=== PATIENT | female | born 1935 | race Caucasian/White ===

== ENCOUNTER 2018-06-05 10:22 | Emergency (ER) | payer OTHER ==
[~2018-06-05] VITALS: Ht 152.4 cm; Wt 58.5 kg
[2018-06-05 10:39] VITALS: BP_SYST 133
[2018-06-05] MEDS: ASPIRIN 81 MG TAB.CHEW PO ONE (11:06)
[2018-06-05 11:22] LABS: BASOPHILS % (AUTO) 0.3 % (0.0-2.0); EOSINOPHILS % (AUTO) 0.1 % (0.0-4.0); HEMOGLOBIN 11.9 g/dL (12.0-16.0); LYMPHOCYTES # (AUTO) 1.3 K/uL (1.0-5.5); LYMPHOCYTES % (AUTO) 9.3 % (20.5-51.5); MEAN CORPUSCULAR HEMOGLOBIN 28 pg (27-31); MEAN CORPUSCULAR HGB CONC 34 % (32-36); MEAN CORPUSCULAR VOLUME 83 fL (79.0-98.0); MONOCYTES # (AUTO) 0.7 K/uL (0.0-1.0); MONOCYTES % (AUTO) 5.5 % (1.7-9.3); NEUTROPHILS # (AUTO) 11.5 K/uL (1.8-7.7); NEUTROPHILS % (AUTO) 84.8 % (40.0-70.0); PLATELET COUNT (AUTO) 325 K/uL (130-430); RED BLOOD CELL COUNT(AUTO) 4.21 MIL/uL (4.2-6.2); WHITE BLOOD COUNT (AUTO) 13.5 K/uL (4.8-10.8)
[2018-06-05 11:25] VITALS: BP_SYST 126
[2018-06-05 11:28] LABS: ANION GAP 15 (5-15); CALCIUM 9.1 mg/dL (8.4-11.0); CHLORIDE 100 mmol/L (98-107); CREATININE 1.77 mg/dL (0.55-1.30); GLUCOSE 215 mg/dL (70-99); POTASSIUM 3.9 mmol/L (3.5-5.1); SODIUM SERUM 137 mmol/L (136-145); UREA NITROGEN, BLOOD 32 mg/dL (8-21)
[2018-06-05 11:32] LABS: INR 1.2 (0.8-1.2); PROTHROMBIN TIME 12.4 SECS (9.5-12.5)
[2018-06-05 11:33] LABS: ALANINE AMINOTRANSFERASE 17 U/L (12-78); ALBUMIN 3.4 g/dL (3.4-4.8); ASPARTATE AMINOTRANSFERASE 13 U/L (10-37); TOTAL BILIRUBIN 0.6 mg/dL (0.0-1.0)
== END 2018-06-05 11:25 | disposition short-term general hospital (02) ==
LOC: SED 10:22
DX: R07.89 Other chest pain (principal); Z88.8 Allergy status to other drugs, medicaments and biological substances; Z90.49 Acquired absence of other specified parts of digestive tract
CPT/HCPCS: 36415; 71045; 80053; 82550-TC; 84484; 85025; 85610-TC; 85730-TC; 93005; 99291

== ENCOUNTER 2019-11-26 17:28 | Inpatient (IN) | payer OTHER ==
[~2019-11-26] VITALS: Ht 157.5 cm; Wt 60.4 kg
[2019-11-26 17:35] VITALS: BP_SYST 150
[2019-11-26] MEDS ORDERED: LEVOFLOXACIN 500 MG/D5W 100 ML IV ONE (17:45)
[2019-11-26] MEDS ORDERED: ALBUTEROL SULFATE 0.083% 2.5 MG/3 ML VIAL.NEB INH ONE (17:45)
[2019-11-26 18:12] LABS: EOSINOPHILS % (AUTO) 0.1 % (0.0-4.0); HEMATOCRIT 26.5 % (36-48); HEMOGLOBIN 8.2 g/dL (12.0-16.0); LYMPHOCYTES # (AUTO) 0.8 K/uL (1.0-5.5); LYMPHOCYTES % (AUTO) 5.1 % (20.5-51.5); MEAN CORPUSCULAR HEMOGLOBIN 25 pg (27-31); MEAN CORPUSCULAR HGB CONC 31 % (32-36); MEAN CORPUSCULAR VOLUME 81 fL (79.0-98.0); MONOCYTES # (AUTO) 0.6 K/uL (0.0-1.0); MONOCYTES % (AUTO) 3.6 % (1.7-9.3); NEUTROPHILS # (AUTO) 14.5 K/uL (1.8-7.7); NEUTROPHILS % (AUTO) 91.2 % (40.0-70.0); PLATELET COUNT (AUTO) 297 K/uL (130-430); RED BLOOD CELL COUNT(AUTO) 3.27 MIL/uL (4.2-6.2); RED CELL DISTRIBUTION WIDTH 16.7 % (9.0-15.0); WHITE BLOOD COUNT (AUTO) 15.9 K/uL (4.8-10.8)
[2019-11-26 18:24] LABS: ANION GAP 13 (5-15); CALCIUM 8.2 mg/dL (8.4-11.0); CHLORIDE 111 mmol/L (98-107); CREATININE 1.78 mg/dL (0.55-1.30); GLUCOSE 239 mg/dL (70-99); POTASSIUM 4.2 mmol/L (3.5-5.1); SODIUM SERUM 141 mmol/L (136-145); UREA NITROGEN, BLOOD 42 mg/dL (8-21)
[2019-11-26 18:29] LABS: INR 1.3 (0.8-1.2); PROTHROMBIN TIME 13.2 SECS (9.5-12.5)
[2019-11-26 18:33] LABS: ALANINE AMINOTRANSFERASE 97 U/L (12-78); ALBUMIN 2.1 g/dL (3.4-4.8); ASPARTATE AMINOTRANSFERASE 45 U/L (10-37); TOTAL BILIRUBIN 0.4 mg/dL (0.0-1.0)
[2019-11-26] MEDS ORDERED: FUROSEMIDE 40 MG/4 ML VIAL IVP ONE (19:00)
[2019-11-26 21:50] VITALS: BP_SYST 142
[2019-11-27 01:36] VITALS: BP_SYST 139
[2019-11-27] MEDS ORDERED: COMMUNICATION ORDER XX ONE (02:00)
[2019-11-27] MEDS: PIPERACILLIN/TAZO 3.375/DEX-IS 50 ML IV SCH ×4 (02:34→18:21)
[2019-11-27] MEDS ORDERED: PIPERACILLIN/TAZOBACTAM 3.375 GM/VIAL (ZOSYN) IV ONE (02:40)
[2019-11-27] MEDS ORDERED: AZITHROMYCIN 500 MG/VIAL (ZITHROMAX) IV ONE (02:40)
[2019-11-27] MEDS: AZITHROMYCIN 500 MG in NS 250 ML IV SCH (03:27)
[2019-11-27 05:41] VITALS: BP_SYST 139
[2019-11-27] MEDS: NORMAL SALINE 5 ML DISP.SYRIN IVF SCH (06:00)
[2019-11-27 06:49] LABS: ALANINE AMINOTRANSFERASE 78 U/L (12-78); ALBUMIN 1.7 g/dL (3.4-4.8); ANION GAP 13 (5-15); ASPARTATE AMINOTRANSFERASE 40 U/L (10-37); CALCIUM 7.6 mg/dL (8.4-11.0); CHLORIDE 108 mmol/L (98-107); CREATININE 1.75 mg/dL (0.55-1.30); GLUCOSE 241 mg/dL (70-99); POTASSIUM 3.9 mmol/L (3.5-5.1); SODIUM SERUM 139 mmol/L (136-145); TOTAL BILIRUBIN 0.4 mg/dL (0.0-1.0); UREA NITROGEN, BLOOD 40 mg/dL (8-21)
[2019-11-27 07:20] LABS: BASOPHILS % (AUTO) 0.2 % (0.0-2.0); EOSINOPHILS # (AUTO) 0.2 K/uL (0.0-0.4); EOSINOPHILS % (AUTO) 1.5 % (0.0-4.0); HEMATOCRIT 29.1 % (36-48); HEMOGLOBIN 9.1 g/dL (12.0-16.0); LYMPHOCYTES # (AUTO) 1.1 K/uL (1.0-5.5); LYMPHOCYTES % (AUTO) 6.5 % (20.5-51.5); MEAN CORPUSCULAR HEMOGLOBIN 25 pg (27-31); MEAN CORPUSCULAR HGB CONC 31 % (32-36); MEAN CORPUSCULAR VOLUME 81 fL (79.0-98.0); MONOCYTES # (AUTO) 0.8 K/uL (0.0-1.0); MONOCYTES % (AUTO) 4.9 % (1.7-9.3); NEUTROPHILS # (AUTO) 14.5 K/uL (1.8-7.7); NEUTROPHILS % (AUTO) 86.9 % (40.0-70.0); PLATELET COUNT (AUTO) 259 K/uL (130-430); RED BLOOD CELL COUNT(AUTO) 3.61 MIL/uL (4.2-6.2); RED CELL DISTRIBUTION WIDTH 16.5 % (9.0-15.0); WHITE BLOOD COUNT (AUTO) 16.7 K/uL (4.8-10.8)
[2019-11-27 07:25] LABS: CHOLESTEROL 82 mg/dL (<200); HDL CHOLESTEROL 29 mg/dL (>55); LDL CHOLESTEROL 41 mg/dL (<100); TRIGLYCERIDES 78 mg/dL (30-150)
[2019-11-27 08:00] VITALS: BP_SYST 130
[2019-11-27] MEDS: FUROSEMIDE 40 MG/4 ML VIAL IVP SCH (08:31)
[2019-11-27] MEDS ORDERED: FUROSEMIDE 40 MG/4 ML VIAL IVP SCH (09:00)
[2019-11-27 12:00] VITALS: BP_SYST 131
[2019-11-27] MEDS: ALBUTEROL SULFATE 0.083% 2.5 MG/3 ML VIAL.NEB INH PRN (13:40)
[2019-11-27 16:00] VITALS: BP_SYST 138
[2019-11-27 20:00] VITALS: BP_SYST 134
[2019-11-28] VITALS (7 sets, daily range): BP systolic 126–144
[2019-11-28] MEDS: AZITHROMYCIN 500 MG in NS 250 ML IV SCH (01:02)
[2019-11-28] MEDS: ALBUTEROL SULFATE 0.083% 2.5 MG/3 ML VIAL.NEB INH PRN ×2 (01:10→10:38)
[2019-11-28] MEDS: PIPERACILLIN/TAZO 3.375/DEX-IS 50 ML IV SCH ×4 (06:00→18:11)
[2019-11-28] MEDS ORDERED: DEXTROSE 50% JECT 50 ML DISP.SYRIN IVP PRN (09:15)
[2019-11-28] MEDS: FUROSEMIDE 40 MG/4 ML VIAL IVP SCH (09:38)
[2019-11-28 10:26] LABS: ANION GAP 8 (5-15); CALCIUM 7.4 mg/dL (8.4-11.0); CHLORIDE 102 mmol/L (98-107); CREATININE 2.11 mg/dL (0.55-1.30); GLUCOSE 376 mg/dL (70-99); POTASSIUM 3.3 mmol/L (3.5-5.1); SODIUM SERUM 136 mmol/L (136-145); UREA NITROGEN, BLOOD 38 mg/dL (8-21)
[2019-11-28 10:32] LABS: ALANINE AMINOTRANSFERASE 63 U/L (12-78); ASPARTATE AMINOTRANSFERASE 26 U/L (10-37); TOTAL BILIRUBIN 0.5 mg/dL (0.0-1.0)
[2019-11-28 12:32] LABS: BASOPHILS % (AUTO) 0.3 % (0.0-2.0); EOSINOPHILS # (AUTO) 0.2 K/uL (0.0-0.4); EOSINOPHILS % (AUTO) 1.5 % (0.0-4.0); HEMATOCRIT 30.5 % (36-48); HEMOGLOBIN 9.3 g/dL (12.0-16.0); LYMPHOCYTES # (AUTO) 0.8 K/uL (1.0-5.5); LYMPHOCYTES % (AUTO) 5.6 % (20.5-51.5); MEAN CORPUSCULAR HEMOGLOBIN 25 pg (27-31); MEAN CORPUSCULAR HGB CONC 31 % (32-36); MEAN CORPUSCULAR VOLUME 82 fL (79.0-98.0); MONOCYTES # (AUTO) 0.5 K/uL (0.0-1.0); MONOCYTES % (AUTO) 3.7 % (1.7-9.3); NEUTROPHILS # (AUTO) 13.1 K/uL (1.8-7.7); NEUTROPHILS % (AUTO) 88.9 % (40.0-70.0); PLATELET COUNT (AUTO) 246 K/uL (130-430); RED BLOOD CELL COUNT(AUTO) 3.72 MIL/uL (4.2-6.2); RED CELL DISTRIBUTION WIDTH 17.1 % (9.0-15.0); WHITE BLOOD COUNT (AUTO) 14.7 K/uL (4.8-10.8)
[2019-11-28] MEDS: INSULIN REGULAR, HUMAN 100 UNITS/ML, 10 ML VIAL (humuLIN R) SUBCUT PRN ×2 (12:43→17:43)
[2019-11-28] MEDS: NORMAL SALINE 5 ML DISP.SYRIN IVF SCH ×3 (18:11→23:02)
[2019-11-29] MEDS: PIPERACILLIN/TAZO 3.375/DEX-IS 50 ML IV SCH ×4 (00:01→18:12)
[2019-11-29] MEDS: INSULIN REGULAR, HUMAN 100 UNITS/ML, 10 ML VIAL (humuLIN R) SUBCUT PRN ×4 (00:02→17:44)
[2019-11-29 00:16] VITALS: BP_SYST 131
[2019-11-29] MEDS: ALBUTEROL SULFATE 0.083% 2.5 MG/3 ML VIAL.NEB INH PRN (00:40)
[2019-11-29] MEDS: AZITHROMYCIN 500 MG in NS 250 ML IV SCH (01:14)
[2019-11-29] MEDS: NORMAL SALINE 5 ML DISP.SYRIN IVF SCH ×3 (06:16→22:00)
[2019-11-29 06:45] LABS: BASOPHILS % (AUTO) 0.2 % (0.0-2.0); EOSINOPHILS # (AUTO) 0.4 K/uL (0.0-0.4); EOSINOPHILS % (AUTO) 2.2 % (0.0-4.0); HEMATOCRIT 25.4 % (36-48); HEMOGLOBIN 8.1 g/dL (12.0-16.0); LYMPHOCYTES % (AUTO) 5.1 % (20.5-51.5); MEAN CORPUSCULAR HEMOGLOBIN 25 pg (27-31); MEAN CORPUSCULAR HGB CONC 32 % (32-36); MEAN CORPUSCULAR VOLUME 79 fL (79.0-98.0); MONOCYTES # (AUTO) 0.7 K/uL (0.0-1.0); MONOCYTES % (AUTO) 3.8 % (1.7-9.3); NEUTROPHILS # (AUTO) 16.7 K/uL (1.8-7.7); PLATELET COUNT (AUTO) 252 K/uL (130-430); RED BLOOD CELL COUNT(AUTO) 3.22 MIL/uL (4.2-6.2); RED CELL DISTRIBUTION WIDTH 16.3 % (9.0-15.0); WHITE BLOOD COUNT (AUTO) 18.8 K/uL (4.8-10.8)
[2019-11-29 07:14] LABS: ALANINE AMINOTRANSFERASE 51 U/L (12-78); ALBUMIN 1.9 g/dL (3.4-4.8); ANION GAP 10 (5-15); ASPARTATE AMINOTRANSFERASE 21 U/L (10-37); CALCIUM 7.2 mg/dL (8.4-11.0); CHLORIDE 101 mmol/L (98-107); CREATININE 1.92 mg/dL (0.55-1.30); GLUCOSE 130 mg/dL (70-99); SODIUM SERUM 142 mmol/L (136-145); TOTAL BILIRUBIN 0.5 mg/dL (0.0-1.0); UREA NITROGEN, BLOOD 35 mg/dL (8-21)
[2019-11-29 08:00] VITALS: BP_SYST 138
[2019-11-29 08:12] LABS: POTASSIUM 2.9 mmol/L (3.5-5.1)
[2019-11-29] MEDS: FUROSEMIDE 40 MG/4 ML VIAL IVP SCH (08:56)
[2019-11-29] MEDS: BALSAM PERU/CASTOR OIL 60 GM OINT...G. TP SCH (08:57)
[2019-11-29 09:32] LABS: NEUTROPHILS % (AUTO) 88.7 % (40.0-70.0)
[2019-11-29] MEDS ORDERED: IPRATROPIUM/ALBUTEROL SULFATE 3 ML AMPUL.NEB (DUONEB) INH SCH (10:00)
[2019-11-29 12:08] VITALS: BP_SYST 157
[2019-11-29] MEDS: IPRATROPIUM/ALBUTEROL SULFATE 3 ML AMPUL.NEB (DUONEB) INH SCH ×3 (15:00→23:00)
[2019-11-29 16:15] VITALS: BP_SYST 162
[2019-11-29] MEDS ORDERED: POTASSIUM CHLORIDE 40 MEQ in NS 250 ML IV ONE (18:00)
[2019-11-29 20:00] VITALS: BP_SYST 154
[2019-11-30 00:56] VITALS: BP_SYST 142
[2019-11-30] MEDS: AZITHROMYCIN 500 MG in NS 250 ML IV SCH (01:38)
[2019-11-30] MEDS: IPRATROPIUM/ALBUTEROL SULFATE 3 ML AMPUL.NEB (DUONEB) INH SCH ×6 (03:00→23:29)
[2019-11-30] MEDS: NORMAL SALINE 5 ML DISP.SYRIN IVF SCH ×4 (05:20→23:08)
[2019-11-30] MEDS: PIPERACILLIN/TAZO 3.375/DEX-IS 50 ML IV SCH ×4 (05:20→17:51)
[2019-11-30] MEDS: INSULIN REGULAR, HUMAN 100 UNITS/ML, 10 ML VIAL (humuLIN R) SUBCUT PRN ×3 (05:28→17:23)
[2019-11-30 06:46] LABS: ANION GAP 11 (5-15); CALCIUM 7.2 mg/dL (8.4-11.0); CHLORIDE 92 mmol/L (98-107); CREATININE 2.03 mg/dL (0.55-1.30); GLUCOSE 327 mg/dL (70-99); PHOSPHORUS 4.9 mg/dL (2.7-4.5); POTASSIUM 3.6 mmol/L (3.5-5.1); SODIUM SERUM 133 mmol/L (136-145); UREA NITROGEN, BLOOD 36 mg/dL (8-21)
[2019-11-30 06:53] LABS: BASOPHILS % (AUTO) 0.1 % (0.0-2.0); EOSINOPHILS % (AUTO) 0.1 % (0.0-4.0); HEMATOCRIT 27.6 % (36-48); HEMOGLOBIN 8.6 g/dL (12.0-16.0); LYMPHOCYTES # (AUTO) 0.4 K/uL (1.0-5.5); LYMPHOCYTES % (AUTO) 2.2 % (20.5-51.5); MEAN CORPUSCULAR HEMOGLOBIN 25 pg (27-31); MEAN CORPUSCULAR HGB CONC 31 % (32-36); MEAN CORPUSCULAR VOLUME 79 fL (79.0-98.0); MONOCYTES # (AUTO) 0.4 K/uL (0.0-1.0); MONOCYTES % (AUTO) 2.7 % (1.7-9.3); NEUTROPHILS % (AUTO) 94.9 % (40.0-70.0); PLATELET COUNT (AUTO) 261 K/uL (130-430); RED BLOOD CELL COUNT(AUTO) 3.47 MIL/uL (4.2-6.2); RED CELL DISTRIBUTION WIDTH 16.7 % (9.0-15.0); WHITE BLOOD COUNT (AUTO) 16.8 K/uL (4.8-10.8)
[2019-11-30 08:00] VITALS: BP_SYST 143
[2019-11-30] MEDS: BALSAM PERU/CASTOR OIL 60 GM OINT...G. TP SCH (09:00)
[2019-11-30 09:09] LABS: C-REACTIVE PROTEIN QUANT 15.8 mg/dL (0-0.5)
[2019-11-30] MEDS: FUROSEMIDE 40 MG/4 ML VIAL IVP SCH (09:47)
[2019-11-30 10:52] LABS: ERYTHROCYTE SEDIMENTATION RATE 48 MM/HR (0-20)
[2019-11-30 12:00] VITALS: BP_SYST 135
[2019-11-30 12:40] VITALS: BP_SYST 143
[2019-11-30 16:43] VITALS: BP_SYST 136
[2019-11-30 20:00] VITALS: BP_SYST 128
[2019-12-01] VITALS (21 sets, daily range): BP systolic 99–147
[2019-12-01] MEDS: AZITHROMYCIN 500 MG in NS 250 ML IV SCH ×2
[2019-12-01] MEDS: PIPERACILLIN/TAZO 3.375/DEX-IS 50 ML IV SCH ×4 (00:01→18:05)
[2019-12-01] MEDS: IPRATROPIUM/ALBUTEROL SULFATE 3 ML AMPUL.NEB (DUONEB) INH SCH ×6 (03:01→23:15)
[2019-12-01] MEDS: NORMAL SALINE 5 ML DISP.SYRIN IVF SCH ×3 (05:08→22:10)
[2019-12-01] MEDS: INSULIN REGULAR, HUMAN 100 UNITS/ML, 10 ML VIAL (humuLIN R) SUBCUT PRN ×2 (06:02→13:13)
[2019-12-01 07:16] LABS: BASOPHILS % (AUTO) 0.2 % (0.0-2.0); EOSINOPHILS % (AUTO) 0.1 % (0.0-4.0); HEMATOCRIT 28.2 % (36-48); HEMOGLOBIN 8.6 g/dL (12.0-16.0); LYMPHOCYTES # (AUTO) 0.2 K/uL (1.0-5.5); LYMPHOCYTES % (AUTO) 1.6 % (20.5-51.5); MEAN CORPUSCULAR HEMOGLOBIN 25 pg (27-31); MEAN CORPUSCULAR HGB CONC 31 % (32-36); MEAN CORPUSCULAR VOLUME 81 fL (79.0-98.0); MONOCYTES # (AUTO) 0.4 K/uL (0.0-1.0); MONOCYTES % (AUTO) 2.7 % (1.7-9.3); NEUTROPHILS # (AUTO) 13.9 K/uL (1.8-7.7); NEUTROPHILS % (AUTO) 95.4 % (40.0-70.0); PLATELET COUNT (AUTO) 223 K/uL (130-430); RED BLOOD CELL COUNT(AUTO) 3.46 MIL/uL (4.2-6.2); RED CELL DISTRIBUTION WIDTH 16.6 % (9.0-15.0); WHITE BLOOD COUNT (AUTO) 14.6 K/uL (4.8-10.8)
[2019-12-01 07:27] LABS: ANION GAP 10 (5-15); CALCIUM 7.3 mg/dL (8.4-11.0); CHLORIDE 92 mmol/L (98-107); GLUCOSE 289 mg/dL (70-99); PHOSPHORUS 7.4 mg/dL (2.7-4.5); POTASSIUM 3.7 mmol/L (3.5-5.1); SODIUM SERUM 137 mmol/L (136-145); UREA NITROGEN, BLOOD 46 mg/dL (8-21)
[2019-12-01] MEDS: FUROSEMIDE 40 MG/4 ML VIAL IVP SCH (08:40)
[2019-12-01] MEDS: BALSAM PERU/CASTOR OIL 60 GM OINT...G. TP SCH (08:42)
[2019-12-01 11:12] LABS: ERYTHROCYTE SEDIMENTATION RATE 59 MM/HR (0-20)
[2019-12-01] MEDS: FAMOTIDINE PF 20 MG/2 ML VIAL IVP SCH (21:39)
[2019-12-02] VITALS (31 sets, daily range): BP systolic 94–130
[2019-12-02] MEDS: PIPERACILLIN/TAZO 3.375/DEX-IS 50 ML IV SCH ×4 (00:43→17:13)
[2019-12-02] MEDS: INSULIN REGULAR, HUMAN 100 UNITS/ML, 10 ML VIAL (humuLIN R) SUBCUT PRN ×4 (00:50→17:14)
[2019-12-02 02:32] LABS: INR 1.4 (0.8-1.2); PROTHROMBIN TIME 13.8 SECS (9.5-12.5)
[2019-12-02] MEDS: IPRATROPIUM/ALBUTEROL SULFATE 3 ML AMPUL.NEB (DUONEB) INH SCH ×5 (03:45→23:27)
[2019-12-02] MEDS: NORMAL SALINE 5 ML DISP.SYRIN IVF SCH ×3 (06:22→21:05)
[2019-12-02] MEDS ORDERED: MIDAZOLAM HCL 5 MG/5 ML VIAL ONE (06:58)
[2019-12-02] MEDS ORDERED: LIDOCAINE 2% JELLY UROJECT 10 ML MM ONE (06:59)
[2019-12-02] MEDS ORDERED: fentaNYL CITRATE/PF 100 MCG/2 ML AMP ONE (06:59)
[2019-12-02] MEDS ORDERED: LIDOCAINE 1%, 20 ML MDV 0 ML ONE (07:00)
[2019-12-02] MEDS ORDERED: BENZOCAINE 20% 0.5mL UD SPRAY MM ONE (07:22)
[2019-12-02] MEDS ORDERED: NS 500 ML IV ONE ×2 (07:44→15:15)
[2019-12-02 07:46] LABS: BILIRUBIN,URINE NEGATIVE (NEGATIVE); BLOOD, URINE 1+ (NEGATIVE); CLARITY/URINE CLEAR (CLEAR); COLOR,URINE YELLOW (YELLOW); GLUCOSE,URINE NEGATIVE (NEGATIVE); KETONES,URINE NEGATIVE (NEGATIVE); LEUKOCYTE ESTERASE ,URINE NEGATIVE (NEGATIVE); NITRITE, URINE NEGATIVE (NEGATIVE); PROTEIN URINE TRACE (NEGATIVE); UROBILINOGEN,URINE 0.2 (0.2-1.0)
[2019-12-02] MEDS ORDERED: AMIODARONE HCL 900 MG in D5W 482 ML IV SCH (08:00)
[2019-12-02] MEDS ORDERED: NACL 0.9% 500 ML IV ONE ×2 (08:15)
[2019-12-02] MEDS ORDERED: AMIODARONE HCL 150 MG in D5W 100 ML IV ONE (08:15)
[2019-12-02] MEDS: FAMOTIDINE PF 20 MG/2 ML VIAL IVP SCH ×2 (08:26→20:41)
[2019-12-02] MEDS: BALSAM PERU/CASTOR OIL 60 GM OINT...G. TP SCH (08:26)
[2019-12-02] MEDS: NACL 0.9% 1,000 ML IV SCH ×2 (08:29→17:12)
[2019-12-02] MEDS ORDERED: COMMUNICATION ORDER XX ONE (09:00)
[2019-12-02 12:16] LABS: BACTERIA,URINE RARE /HPF (None Seen); WBC,URINE 0-3 /HPF (0-3)
[2019-12-02] MEDS ORDERED: fentaNYL CITRATE/PF 100 MCG/2 ML AMP IVP PRN (15:15)
[2019-12-03] VITALS (37 sets, daily range): BP systolic 84–138
[2019-12-03] MEDS: PIPERACILLIN/TAZO 3.375/DEX-IS 50 ML IV SCH ×4 (01:11→18:44)
[2019-12-03] MEDS: IPRATROPIUM/ALBUTEROL SULFATE 3 ML AMPUL.NEB (DUONEB) INH SCH ×6 (03:35→23:37)
[2019-12-03] MEDS: NACL 0.9% 1,000 ML IV SCH ×3 (03:45→23:45)
[2019-12-03] MEDS: NORMAL SALINE 5 ML DISP.SYRIN IVF SCH ×3 (05:49→20:59)
[2019-12-03] MEDS ORDERED: MIDAZOLAM HCL 5 MG/5 ML VIAL ONE (07:39)
[2019-12-03] MEDS ORDERED: fentaNYL CITRATE/PF 100 MCG/2 ML AMP ONE (07:40)
[2019-12-03] MEDS ORDERED: LIDOCAINE 2% JELLY UROJECT 10 ML MM ONE (07:40)
[2019-12-03] MEDS ORDERED: LIDOCAINE 1%, 20 ML MDV 0 ML ONE (07:43)
[2019-12-03 07:51] LABS: BASOPHILS # (AUTO) 0.1 K/uL (0.0-0.2); BASOPHILS % (AUTO) 0.6 % (0.0-2.0); EOSINOPHILS # (AUTO) 0.4 K/uL (0.0-0.4); LYMPHOCYTES # (AUTO) 0.4 K/uL (1.0-5.5); LYMPHOCYTES % (AUTO) 3.6 % (20.5-51.5); MEAN CORPUSCULAR HEMOGLOBIN 24 pg (27-31); MEAN CORPUSCULAR HGB CONC 31 % (32-36); MEAN CORPUSCULAR VOLUME 78 fL (79.0-98.0); MONOCYTES # (AUTO) 0.3 K/uL (0.0-1.0); MONOCYTES % (AUTO) 2.4 % (1.7-9.3); NEUTROPHILS # (AUTO) 11.1 K/uL (1.8-7.7); NEUTROPHILS % (AUTO) 90.4 % (40.0-70.0); PLATELET COUNT (AUTO) 164 K/uL (130-430); RED BLOOD CELL COUNT(AUTO) 2.69 MIL/uL (4.2-6.2); RED CELL DISTRIBUTION WIDTH 17.1 % (9.0-15.0); WHITE BLOOD COUNT (AUTO) 12.2 K/uL (4.8-10.8)
[2019-12-03] MEDS ORDERED: FLUMAZENIL 0.1 MG/ML IVP ONE (07:52)
[2019-12-03] MEDS ORDERED: NALOXONE HCL 0.4 MG/ML AMP (NARCAN) ONE (07:52)
[2019-12-03 07:59] LABS: ALANINE AMINOTRANSFERASE 21 U/L (12-78); ALBUMIN 1.4 g/dL (3.4-4.8); ANION GAP 16 (5-15); ASPARTATE AMINOTRANSFERASE 27 U/L (10-37); CHLORIDE 98 mmol/L (98-107); CREATININE 3.71 mg/dL (0.55-1.30); GLUCOSE 288 mg/dL (70-99); SODIUM SERUM 141 mmol/L (136-145); TOTAL BILIRUBIN 0.4 mg/dL (0.0-1.0); UREA NITROGEN, BLOOD 63 mg/dL (8-21)
[2019-12-03 08:01] LABS: HEMATOCRIT 21.1 % (36-48); HEMOGLOBIN 6.6 g/dL (12.0-16.0)
[2019-12-03 08:09] LABS: CALCIUM 6.1 mg/dL (8.4-11.0); POTASSIUM 2.4 mmol/L (3.5-5.1)
[2019-12-03] MEDS ORDERED: MIDAZOLAM HCL 2 MG/2 ML VIAL (VERSED) ONE (08:20)
[2019-12-03] MEDS ORDERED: POTASSIUM CHLORIDE 20 MEQ/PKT PACKET PO ONE (08:30)
[2019-12-03] MEDS ORDERED: KCL 20 mEq in 100 mL (PREMIX) 100 ML IV ONE (08:30)
[2019-12-03] MEDS ORDERED: CALCIUM GLUCONATE 1 GM in NS 100 ML IV ONE (09:00)
[2019-12-03] MEDS: BALSAM PERU/CASTOR OIL 60 GM OINT...G. TP SCH (09:06)
[2019-12-03] MEDS: FAMOTIDINE PF 20 MG/2 ML VIAL IVP SCH ×2 (09:06→20:58)
[2019-12-03] MEDS ORDERED: FUROSEMIDE 20 MG/2 ML VIAL IVP ONE (09:15)
[2019-12-03] MEDS: LORazepam 2 MG/ML VIAL IVP PRN (09:41)
[2019-12-03] MEDS ORDERED: NS 250 ML IV ONE (10:45)
[2019-12-03] MEDS: INSULIN REGULAR, HUMAN 100 UNITS/ML, 10 ML VIAL (humuLIN R) SUBCUT PRN ×2 (11:57→18:48)
[2019-12-04] VITALS (30 sets, daily range): BP systolic 91–164
[2019-12-04] MEDS: PIPERACILLIN/TAZO 3.375/DEX-IS 50 ML IV SCH ×4 (00:11→17:44)
[2019-12-04] MEDS: INSULIN REGULAR, HUMAN 100 UNITS/ML, 10 ML VIAL (humuLIN R) SUBCUT PRN ×3 (01:05→17:47)
[2019-12-04] MEDS: IPRATROPIUM/ALBUTEROL SULFATE 3 ML AMPUL.NEB (DUONEB) INH SCH ×3 (03:29→23:00)
[2019-12-04] MEDS: NACL 0.9% 1,000 ML IV SCH ×2 (03:32→17:53)
[2019-12-04] MEDS: NORMAL SALINE 5 ML DISP.SYRIN IVF SCH ×3 (05:08→22:00)
[2019-12-04 05:49] LABS: BASOPHILS # (AUTO) 0.1 K/uL (0.0-0.2); BASOPHILS % (AUTO) 0.5 % (0.0-2.0); EOSINOPHILS # (AUTO) 0.7 K/uL (0.0-0.4); EOSINOPHILS % (AUTO) 4.9 % (0.0-4.0); HEMATOCRIT 30.5 % (36-48); HEMOGLOBIN 9.8 g/dL (12.0-16.0); LYMPHOCYTES # (AUTO) 0.8 K/uL (1.0-5.5); LYMPHOCYTES % (AUTO) 5.4 % (20.5-51.5); MEAN CORPUSCULAR HEMOGLOBIN 26 pg (27-31); MEAN CORPUSCULAR HGB CONC 32 % (32-36); MEAN CORPUSCULAR VOLUME 81 fL (79.0-98.0); MONOCYTES # (AUTO) 0.4 K/uL (0.0-1.0); MONOCYTES % (AUTO) 2.6 % (1.7-9.3); NEUTROPHILS % (AUTO) 86.6 % (40.0-70.0); PLATELET COUNT (AUTO) 144 K/uL (130-430); RED BLOOD CELL COUNT(AUTO) 3.76 MIL/uL (4.2-6.2); RED CELL DISTRIBUTION WIDTH 17.1 % (9.0-15.0)
[2019-12-04 06:07] LABS: ALANINE AMINOTRANSFERASE 510 U/L (12-78); ALBUMIN 1.2 g/dL (3.4-4.8); ANION GAP 14 (5-15); ASPARTATE AMINOTRANSFERASE 883 U/L (10-37); CHLORIDE 100 mmol/L (98-107); CREATININE 3.86 mg/dL (0.55-1.30); GLUCOSE 137 mg/dL (70-99); POTASSIUM 3.1 mmol/L (3.5-5.1); SODIUM SERUM 136 mmol/L (136-145); TOTAL BILIRUBIN 1.1 mg/dL (0.0-1.0); UREA NITROGEN, BLOOD 68 mg/dL (8-21)
[2019-12-04 06:10] LABS: CALCIUM 6.2 mg/dL (8.4-11.0)
[2019-12-04] MEDS ORDERED: POTASSIUM CHLORIDE 20 MEQ/PKT PACKET PO ONE (08:15)
[2019-12-04] MEDS ORDERED: CALCIUM GLUCONATE 2 GM in NS 100 ML IV ONE (08:15)
[2019-12-04] MEDS: FAMOTIDINE PF 20 MG/2 ML VIAL IVP SCH ×2 (08:58→21:09)
[2019-12-04] MEDS: BALSAM PERU/CASTOR OIL 60 GM OINT...G. TP SCH (08:59)
[2019-12-04 09:47] LABS: PHOSPHORUS 5.1 mg/dL (2.7-4.5)
[2019-12-04] MEDS: LORazepam 2 MG/ML VIAL IVP PRN (10:32)
[2019-12-04] MEDS: FLUCONAZOLE 100 mg/ NS 50 ML IV SCH (12:22)
[2019-12-04] MEDS ORDERED: FUROSEMIDE 20 MG/2 ML VIAL IVP ONE (17:30)
[2019-12-05] VITALS (35 sets, daily range): BP systolic 98–166
[2019-12-05] MEDS: PIPERACILLIN/TAZO 3.375/DEX-IS 50 ML IV SCH ×4 (00:27→17:39)
[2019-12-05] MEDS: INSULIN REGULAR, HUMAN 100 UNITS/ML, 10 ML VIAL (humuLIN R) SUBCUT PRN ×3 (00:36→12:13)
[2019-12-05] MEDS: IPRATROPIUM/ALBUTEROL SULFATE 3 ML AMPUL.NEB (DUONEB) INH SCH ×6 (04:01→23:36)
[2019-12-05] MEDS: NACL 0.9% 1,000 ML IV SCH ×2 (04:28→17:40)
[2019-12-05] MEDS: NORMAL SALINE 5 ML DISP.SYRIN IVF SCH ×3 (06:07→22:55)
[2019-12-05] MEDS: FAMOTIDINE PF 20 MG/2 ML VIAL IVP SCH ×2 (08:45→22:54)
[2019-12-05] MEDS: BALSAM PERU/CASTOR OIL 60 GM OINT...G. TP SCH (08:45)
[2019-12-05] MEDS: FLUCONAZOLE 100 mg/ NS 50 ML IV SCH (12:08)
[2019-12-05 12:09] LABS: ANION GAP 15 (5-15); CHLORIDE 108 mmol/L (98-107); CREATININE 4.09 mg/dL (0.55-1.30); GLUCOSE 162 mg/dL (70-99); POTASSIUM 3.5 mmol/L (3.5-5.1); SODIUM SERUM 144 mmol/L (136-145); UREA NITROGEN, BLOOD 77 mg/dL (8-21)
[2019-12-05 12:10] LABS: BASOPHILS # (AUTO) 0.1 K/uL (0.0-0.2); BASOPHILS % (AUTO) 0.4 % (0.0-2.0); EOSINOPHILS # (AUTO) 1.1 K/uL (0.0-0.4); EOSINOPHILS % (AUTO) 6.1 % (0.0-4.0); HEMATOCRIT 35.4 % (36-48); HEMOGLOBIN 11.1 g/dL (12.0-16.0); LYMPHOCYTES # (AUTO) 0.8 K/uL (1.0-5.5); LYMPHOCYTES % (AUTO) 4.5 % (20.5-51.5); MEAN CORPUSCULAR HEMOGLOBIN 26 pg (27-31); MEAN CORPUSCULAR HGB CONC 31 % (32-36); MEAN CORPUSCULAR VOLUME 82 fL (79.0-98.0); MONOCYTES # (AUTO) 0.8 K/uL (0.0-1.0); MONOCYTES % (AUTO) 4.2 % (1.7-9.3); NEUTROPHILS % (AUTO) 84.8 % (40.0-70.0); PLATELET COUNT (AUTO) 131 K/uL (130-430); RED BLOOD CELL COUNT(AUTO) 4.33 MIL/uL (4.2-6.2); RED CELL DISTRIBUTION WIDTH 17.3 % (9.0-15.0); WHITE BLOOD COUNT (AUTO) 17.7 K/uL (4.8-10.8)
[2019-12-05 12:16] LABS: CALCIUM 6.6 mg/dL (8.4-11.0)
[2019-12-05] MEDS ORDERED: CALCIUM GLUCONATE 2 GM in NS 100 ML IV ONE (12:30)
[2019-12-05] MEDS ORDERED: HEPARIN SODIUM,PORCINE 5000 UNITS/ML VIAL IVP ONE ×2 (14:30→19:30)
[2019-12-05] MEDS ORDERED: HEPARIN SODIUM,PORCINE 5000 UNITS/ML VIAL ONE ×2 (14:49→19:22)
[2019-12-05] MEDS: LORazepam 2 MG/ML VIAL IVP PRN (14:58)
[2019-12-06] VITALS (35 sets, daily range): BP systolic 103–133
[2019-12-06] MEDS: PIPERACILLIN/TAZO 3.375/DEX-IS 50 ML IV SCH ×4 (00:35→17:10)
[2019-12-06] MEDS: INSULIN REGULAR, HUMAN 100 UNITS/ML, 10 ML VIAL (humuLIN R) SUBCUT PRN ×4 (00:54→17:14)
[2019-12-06] MEDS: IPRATROPIUM/ALBUTEROL SULFATE 3 ML AMPUL.NEB (DUONEB) INH SCH ×6 (04:36→23:05)
[2019-12-06] MEDS: NORMAL SALINE 5 ML DISP.SYRIN IVF SCH ×3 (06:28→21:08)
[2019-12-06 06:40] LABS: ALANINE AMINOTRANSFERASE 515 U/L (12-78); ALBUMIN 1.1 g/dL (3.4-4.8); ANION GAP 8 (5-15); ASPARTATE AMINOTRANSFERASE 502 U/L (10-37); CHLORIDE 106 mmol/L (98-107); CREATININE 2.63 mg/dL (0.55-1.30); GLUCOSE 194 mg/dL (70-99); POTASSIUM 3.5 mmol/L (3.5-5.1); SODIUM SERUM 141 mmol/L (136-145); TOTAL BILIRUBIN 0.7 mg/dL (0.0-1.0); UREA NITROGEN, BLOOD 39 mg/dL (8-21)
[2019-12-06 06:43] LABS: BASOPHILS # (AUTO) 0.1 K/uL (0.0-0.2); BASOPHILS % (AUTO) 0.8 % (0.0-2.0); EOSINOPHILS % (AUTO) 8.6 % (0.0-4.0); HEMOGLOBIN 9.4 g/dL (12.0-16.0); LYMPHOCYTES # (AUTO) 1.1 K/uL (1.0-5.5); LYMPHOCYTES % (AUTO) 9.5 % (20.5-51.5); MEAN CORPUSCULAR HEMOGLOBIN 26 pg (27-31); MEAN CORPUSCULAR HGB CONC 32 % (32-36); MEAN CORPUSCULAR VOLUME 81 fL (79.0-98.0); MONOCYTES # (AUTO) 0.6 K/uL (0.0-1.0); MONOCYTES % (AUTO) 4.6 % (1.7-9.3); NEUTROPHILS # (AUTO) 9.2 K/uL (1.8-7.7); NEUTROPHILS % (AUTO) 76.5 % (40.0-70.0); RED BLOOD CELL COUNT(AUTO) 3.57 MIL/uL (4.2-6.2); RED CELL DISTRIBUTION WIDTH 17.3 % (9.0-15.0)
[2019-12-06 07:41] LABS: PLATELET COUNT (AUTO) 85 K/uL (130-430)
[2019-12-06] MEDS: BALSAM PERU/CASTOR OIL 60 GM OINT...G. TP SCH (08:11)
[2019-12-06] MEDS: FAMOTIDINE PF 20 MG/2 ML VIAL IVP SCH ×2 (08:11→21:07)
[2019-12-06] MEDS: FLUCONAZOLE 100 mg/ NS 50 ML IV SCH (11:35)
[2019-12-06] MEDS: LORazepam 2 MG/ML VIAL IVP PRN (14:36)
[2019-12-07] VITALS (34 sets, daily range): BP systolic 99–153
[2019-12-07] MEDS: PIPERACILLIN/TAZO 3.375/DEX-IS 50 ML IV SCH ×5 (00:05→23:56)
[2019-12-07] MEDS: INSULIN REGULAR, HUMAN 100 UNITS/ML, 10 ML VIAL (humuLIN R) SUBCUT PRN ×3 (00:25→17:52)
[2019-12-07] MEDS: IPRATROPIUM/ALBUTEROL SULFATE 3 ML AMPUL.NEB (DUONEB) INH SCH ×6 (03:47→23:21)
[2019-12-07 05:22] LABS: BASOPHILS # (AUTO) 0.1 K/uL (0.0-0.2); BASOPHILS % (AUTO) 0.7 % (0.0-2.0); EOSINOPHILS # (AUTO) 0.9 K/uL (0.0-0.4); EOSINOPHILS % (AUTO) 8.5 % (0.0-4.0); HEMATOCRIT 30.9 % (36-48); LYMPHOCYTES # (AUTO) 1.1 K/uL (1.0-5.5); LYMPHOCYTES % (AUTO) 10.7 % (20.5-51.5); MEAN CORPUSCULAR HEMOGLOBIN 26 pg (27-31); MEAN CORPUSCULAR HGB CONC 33 % (32-36); MEAN CORPUSCULAR VOLUME 81 fL (79.0-98.0); MONOCYTES # (AUTO) 0.4 K/uL (0.0-1.0); MONOCYTES % (AUTO) 4.4 % (1.7-9.3); NEUTROPHILS # (AUTO) 7.7 K/uL (1.8-7.7); NEUTROPHILS % (AUTO) 75.7 % (40.0-70.0); PLATELET COUNT (AUTO) 83 K/uL (130-430); RED BLOOD CELL COUNT(AUTO) 3.81 MIL/uL (4.2-6.2); RED CELL DISTRIBUTION WIDTH 18.1 % (9.0-15.0); WHITE BLOOD COUNT (AUTO) 10.2 K/uL (4.8-10.8)
[2019-12-07 05:40] LABS: ALANINE AMINOTRANSFERASE 594 U/L (12-78); ALBUMIN 1.3 g/dL (3.4-4.8); ANION GAP 13 (5-15); ASPARTATE AMINOTRANSFERASE 558 U/L (10-37); CALCIUM 7.6 mg/dL (8.4-11.0); CHLORIDE 104 mmol/L (98-107); CREATININE 3.03 mg/dL (0.55-1.30); GLUCOSE 143 mg/dL (70-99); POTASSIUM 3.2 mmol/L (3.5-5.1); SODIUM SERUM 141 mmol/L (136-145); TOTAL BILIRUBIN 0.5 mg/dL (0.0-1.0); UREA NITROGEN, BLOOD 43 mg/dL (8-21)
[2019-12-07] MEDS: NORMAL SALINE 5 ML DISP.SYRIN IVF SCH ×3 (05:48→21:19)
[2019-12-07] MEDS ORDERED: KCL 20 mEq in 100 mL (PREMIX) 100 ML IV ONE (09:00)
[2019-12-07] MEDS: FAMOTIDINE PF 20 MG/2 ML VIAL IVP SCH ×2 (09:08→21:18)
[2019-12-07] MEDS: BALSAM PERU/CASTOR OIL 60 GM OINT...G. TP SCH (09:08)
[2019-12-07] MEDS: LORazepam 2 MG/ML VIAL IVP PRN ×3 (09:08→17:48)
[2019-12-07] MEDS: FLUCONAZOLE 100 mg/ NS 50 ML IV SCH (12:09)
[2019-12-07 15:07] LABS: HEPATITIS A AB, IgM Negative (Negative); HEPATITIS B CORE AB, IgM Negative (Negative); HEPATITIS B SURFACE AG Negative (Negative)
[2019-12-08] VITALS (31 sets, daily range): BP systolic 91–127
[2019-12-08] MEDS: INSULIN REGULAR, HUMAN 100 UNITS/ML, 10 ML VIAL (humuLIN R) SUBCUT PRN ×5 (00:05→17:19)
[2019-12-08] MEDS: IPRATROPIUM/ALBUTEROL SULFATE 3 ML AMPUL.NEB (DUONEB) INH SCH ×3 (03:15→23:13)
[2019-12-08 05:38] LABS: BASOPHILS # (AUTO) 0.1 K/uL (0.0-0.2); BASOPHILS % (AUTO) 1.1 % (0.0-2.0); EOSINOPHILS # (AUTO) 0.7 K/uL (0.0-0.4); EOSINOPHILS % (AUTO) 8.1 % (0.0-4.0); HEMATOCRIT 29.5 % (36-48); HEMOGLOBIN 9.6 g/dL (12.0-16.0); LYMPHOCYTES # (AUTO) 1.2 K/uL (1.0-5.5); MEAN CORPUSCULAR HEMOGLOBIN 26 pg (27-31); MEAN CORPUSCULAR HGB CONC 32 % (32-36); MEAN CORPUSCULAR VOLUME 81 fL (79.0-98.0); MONOCYTES # (AUTO) 0.4 K/uL (0.0-1.0); MONOCYTES % (AUTO) 4.4 % (1.7-9.3); NEUTROPHILS # (AUTO) 6.1 K/uL (1.8-7.7); NEUTROPHILS % (AUTO) 72.4 % (40.0-70.0); PLATELET COUNT (AUTO) 88 K/uL (130-430); RED BLOOD CELL COUNT(AUTO) 3.63 MIL/uL (4.2-6.2); RED CELL DISTRIBUTION WIDTH 18.3 % (9.0-15.0); WHITE BLOOD COUNT (AUTO) 8.4 K/uL (4.8-10.8)
[2019-12-08 05:59] LABS: ALANINE AMINOTRANSFERASE 385 U/L (12-78); ALBUMIN 1.2 g/dL (3.4-4.8); ANION GAP 13 (5-15); ASPARTATE AMINOTRANSFERASE 189 U/L (10-37); CALCIUM 7.2 mg/dL (8.4-11.0); CHLORIDE 102 mmol/L (98-107); CREATININE 3.66 mg/dL (0.55-1.30); GLUCOSE 175 mg/dL (70-99); POTASSIUM 3.9 mmol/L (3.5-5.1); SODIUM SERUM 140 mmol/L (136-145); TOTAL BILIRUBIN 0.5 mg/dL (0.0-1.0); UREA NITROGEN, BLOOD 51 mg/dL (8-21)
[2019-12-08] MEDS: PIPERACILLIN/TAZO 3.375/DEX-IS 50 ML IV SCH ×3 (06:08→17:16)
[2019-12-08] MEDS: NORMAL SALINE 5 ML DISP.SYRIN IVF SCH ×3 (06:09→21:41)
[2019-12-08] MEDS: FAMOTIDINE PF 20 MG/2 ML VIAL IVP SCH ×2 (09:35→21:40)
[2019-12-08] MEDS: BALSAM PERU/CASTOR OIL 60 GM OINT...G. TP SCH (09:35)
[2019-12-08] MEDS: LORazepam 2 MG/ML VIAL IVP PRN (09:44)
[2019-12-08] MEDS: FLUCONAZOLE 100 mg/ NS 50 ML IV SCH (11:29)
[2019-12-09] VITALS (30 sets, daily range): BP systolic 101–137
[2019-12-09] MEDS: PIPERACILLIN/TAZO 3.375/DEX-IS 50 ML IV SCH ×4 (02:29→17:44)
[2019-12-09] MEDS: IPRATROPIUM/ALBUTEROL SULFATE 3 ML AMPUL.NEB (DUONEB) INH SCH ×3 (03:49→23:22)
[2019-12-09 05:51] LABS: BASOPHILS # (AUTO) 0.1 K/uL (0.0-0.2); BASOPHILS % (AUTO) 0.7 % (0.0-2.0); EOSINOPHILS # (AUTO) 0.7 K/uL (0.0-0.4); EOSINOPHILS % (AUTO) 7.9 % (0.0-4.0); HEMATOCRIT 32.9 % (36-48); HEMOGLOBIN 10.6 g/dL (12.0-16.0); LYMPHOCYTES # (AUTO) 0.8 K/uL (1.0-5.5); LYMPHOCYTES % (AUTO) 9.3 % (20.5-51.5); MEAN CORPUSCULAR HEMOGLOBIN 26 pg (27-31); MEAN CORPUSCULAR HGB CONC 32 % (32-36); MEAN CORPUSCULAR VOLUME 82 fL (79.0-98.0); MONOCYTES # (AUTO) 0.4 K/uL (0.0-1.0); NEUTROPHILS # (AUTO) 6.4 K/uL (1.8-7.7); NEUTROPHILS % (AUTO) 77.1 % (40.0-70.0); PLATELET COUNT (AUTO) 108 K/uL (130-430); RED BLOOD CELL COUNT(AUTO) 4.04 MIL/uL (4.2-6.2); WHITE BLOOD COUNT (AUTO) 8.4 K/uL (4.8-10.8)
[2019-12-09 06:09] LABS: ALANINE AMINOTRANSFERASE 284 U/L (12-78); ALBUMIN 1.3 g/dL (3.4-4.8); ANION GAP 16 (5-15); CHLORIDE 103 mmol/L (98-107); CREATININE 4.16 mg/dL (0.55-1.30); GLUCOSE 238 mg/dL (70-99); POTASSIUM 4.3 mmol/L (3.5-5.1); SODIUM SERUM 141 mmol/L (136-145); TOTAL BILIRUBIN 0.5 mg/dL (0.0-1.0); UREA NITROGEN, BLOOD 62 mg/dL (8-21)
[2019-12-09 06:32] LABS: ASPARTATE AMINOTRANSFERASE 88 U/L (10-37); CALCIUM 6.9 mg/dL (8.4-11.0)
[2019-12-09] MEDS: NORMAL SALINE 5 ML DISP.SYRIN IVF SCH ×3 (06:45→23:23)
[2019-12-09] MEDS: INSULIN REGULAR, HUMAN 100 UNITS/ML, 10 ML VIAL (humuLIN R) SUBCUT PRN ×3 (06:47→17:49)
[2019-12-09] MEDS ORDERED: CALCIUM GLUCONATE 1 GM/10 ML VIAL IVP ONE (07:00)
[2019-12-09] MEDS: BALSAM PERU/CASTOR OIL 60 GM OINT...G. TP SCH (08:08)
[2019-12-09] MEDS: FAMOTIDINE PF 20 MG/2 ML VIAL IVP SCH ×2 (08:08→21:07)
[2019-12-09] MEDS: ACETAMINOPHEN 650 MG/20.3 ML UDC GT PRN (09:08)
[2019-12-09] MEDS ORDERED: HEPARIN SODIUM,PORCINE 5000 UNITS/ML VIAL IV ONE (11:15)
[2019-12-09] MEDS: FLUCONAZOLE 100 mg/ NS 50 ML IV SCH (11:54)
[2019-12-10] VITALS (30 sets, daily range): BP systolic 77–135
[2019-12-10] MEDS: PIPERACILLIN/TAZO 3.375/DEX-IS 50 ML IV SCH ×2 (00:30→06:24)
[2019-12-10] MEDS: INSULIN REGULAR, HUMAN 100 UNITS/ML, 10 ML VIAL (humuLIN R) SUBCUT PRN ×2 (00:38→06:28)
[2019-12-10] MEDS: IPRATROPIUM/ALBUTEROL SULFATE 3 ML AMPUL.NEB (DUONEB) INH SCH ×4 (03:17→15:00)
[2019-12-10] MEDS: ACETAMINOPHEN 650 MG/20.3 ML UDC GT PRN (04:20)
[2019-12-10] MEDS ORDERED: PIPERACILLIN/TAZOBACTAM 3.375 GM/VIAL (ZOSYN) IV ONE (06:09)
[2019-12-10] MEDS: NORMAL SALINE 5 ML DISP.SYRIN IVF SCH ×3 (06:24→22:00)
[2019-12-10 06:37] LABS: ALANINE AMINOTRANSFERASE 175 U/L (12-78); ALBUMIN 1.2 g/dL (3.4-4.8); ANION GAP 14 (5-15); ASPARTATE AMINOTRANSFERASE 46 U/L (10-37); CALCIUM 7.1 mg/dL (8.4-11.0); CHLORIDE 101 mmol/L (98-107); CREATININE 3.23 mg/dL (0.55-1.30); GLUCOSE 175 mg/dL (70-99); POTASSIUM 3.9 mmol/L (3.5-5.1); SODIUM SERUM 135 mmol/L (136-145); TOTAL BILIRUBIN 0.4 mg/dL (0.0-1.0); UREA NITROGEN, BLOOD 44 mg/dL (8-21)
[2019-12-10] MEDS: BALSAM PERU/CASTOR OIL 60 GM OINT...G. TP SCH (08:14)
[2019-12-10] MEDS: FAMOTIDINE PF 20 MG/2 ML VIAL IVP SCH ×2 (08:14→21:00)
[2019-12-10 08:33] LABS: BASOPHILS # (AUTO) 0.1 K/uL (0.0-0.2); BASOPHILS % (AUTO) 0.9 % (0.0-2.0); EOSINOPHILS # (AUTO) 0.7 K/uL (0.0-0.4); EOSINOPHILS % (AUTO) 8.6 % (0.0-4.0); HEMATOCRIT 28.3 % (36-48); HEMOGLOBIN 9.2 g/dL (12.0-16.0); LYMPHOCYTES # (AUTO) 1.1 K/uL (1.0-5.5); LYMPHOCYTES % (AUTO) 12.8 % (20.5-51.5); MEAN CORPUSCULAR HEMOGLOBIN 27 pg (27-31); MEAN CORPUSCULAR HGB CONC 32 % (32-36); MEAN CORPUSCULAR VOLUME 82 fL (79.0-98.0); MONOCYTES # (AUTO) 0.4 K/uL (0.0-1.0); NEUTROPHILS # (AUTO) 6.1 K/uL (1.8-7.7); NEUTROPHILS % (AUTO) 72.7 % (40.0-70.0); PLATELET COUNT (AUTO) 107 K/uL (130-430); RED BLOOD CELL COUNT(AUTO) 3.45 MIL/uL (4.2-6.2); RED CELL DISTRIBUTION WIDTH 19.3 % (9.0-15.0); WHITE BLOOD COUNT (AUTO) 8.5 K/uL (4.8-10.8)
[2019-12-10] MEDS ORDERED: MORPHINE I.V. DRIP 100 ML IV PRN (10:00)
[2019-12-10] MEDS ORDERED: LORazepam 2 MG/ML VIAL IVP PRN (10:00)
[2019-12-10 19:14] LABS: ANTI NUCLEAR AB WITH REFLEX Negative (Negative)
[2019-12-11] VITALS (10 sets, daily range): BP systolic 60–78
[2019-12-11] MEDS: NORMAL SALINE 5 ML DISP.SYRIN IVF SCH (06:00)
[2019-12-11] MEDS: IPRATROPIUM/ALBUTEROL SULFATE 3 ML AMPUL.NEB (DUONEB) INH SCH (07:00)
[2019-12-12 13:50] LABS: ALPHA-1-ANTITRYPSIN, S 199 mg/dL (101-187)
[2019-12-13 14:42] LABS: ANTI-SMOOTH MUSCLE AB 26 Units (0-19)
== END 2019-12-11 09:27 | disposition expired | DRG 870 ==
LOC: SED 17:28 → STU 20:31 → SIC 12-01 10:03
PROVIDERS: ADMIT Internal Medicine Hospice and Palliative Medicine; ATTEND Internal Medicine Hospice and Palliative Medicine
PROC: 5A1955Z Respiratory Ventilation, Greater than 96 Consecutive Hours (ICD-10-PCS; principal; 2019-12-01)
PROC: 02HV33Z Insertion of Infusion Device into Superior Vena Cava, Percutaneous Approach (ICD-10-PCS; 2019-12-01)
PROC: B548ZZA Ultrasonography of Superior Vena Cava, Guidance (ICD-10-PCS; 2019-12-01)
PROC: 0BH17EZ Insertion of Endotracheal Airway into Trachea, Via Natural or Artificial Opening (ICD-10-PCS; 2019-12-01)
PROC: 30233N1 Transfusion of Nonautologous Red Blood Cells into Peripheral Vein, Percutaneous Approach (ICD-10-PCS; 2019-12-03)
PROC: 0B9M8ZX Drainage of Bilateral Lungs, Via Natural or Artificial Opening Endoscopic, Diagnostic (ICD-10-PCS; 2019-12-03)
PROC: 02HV33Z Insertion of Infusion Device into Superior Vena Cava, Percutaneous Approach (ICD-10-PCS; 2019-12-05)
PROC: B548ZZA Ultrasonography of Superior Vena Cava, Guidance (ICD-10-PCS; 2019-12-05)
PROC: 5A1D70Z Performance of Urinary Filtration, Intermittent, Less than 6 Hours Per Day (ICD-10-PCS; 2019-12-05)
PROC: 5A1D70Z Performance of Urinary Filtration, Intermittent, Less than 6 Hours Per Day (ICD-10-PCS; 2019-12-06)
PROC: 5A1D70Z Performance of Urinary Filtration, Intermittent, Less than 6 Hours Per Day (ICD-10-PCS; 2019-12-09)
DX: A41.9 Sepsis, unspecified organism (principal); J69.0 Pneumonitis due to inhalation of food and vomit; E43 Unspecified severe protein-calorie malnutrition; N17.0 Acute kidney failure with tubular necrosis; J96.22 Acute and chronic respiratory failure with hypercapnia; J96.21 Acute and chronic respiratory failure with hypoxia; E87.1 Hypo-osmolality and hyponatremia; E87.4 Mixed disorder of acid-base balance; G72.81 Critical illness myopathy; I13.0 Hypertensive heart and chronic kidney disease with heart failure and stage 1 through stage 4 chronic kidney disease, or unspecified chronic kidney disease; G93.40 Encephalopathy, unspecified; J44.1 Chronic obstructive pulmonary disease with (acute) exacerbation; D69.6 Thrombocytopenia, unspecified; R13.10 Dysphagia, unspecified; J40 Bronchitis, not specified as acute or chronic; D64.9 Anemia, unspecified; N18.3 Chronic kidney disease, stage 3 (moderate); I25.10 Atherosclerotic heart disease of native coronary artery without angina pectoris; E11.65 Type 2 diabetes mellitus with hyperglycemia; E11.22 Type 2 diabetes mellitus with diabetic chronic kidney disease; E83.39 Other disorders of phosphorus metabolism; E83.42 Hypomagnesemia; E83.51 Hypocalcemia; Z66 Do not resuscitate; E87.6 Hypokalemia; I48.91 Unspecified atrial fibrillation; I50.9 Heart failure, unspecified; Z87.11 Personal history of peptic ulcer disease; Z90.49 Acquired absence of other specified parts of digestive tract; Z95.5 Presence of coronary angioplasty implant and graft; Z68.24 Body mass index [BMI] 24.0-24.9, adult; Z88.8 Allergy status to other drugs, medicaments and biological substances
CPT/HCPCS: 31625; 36415; 36600; 70450-TC; 71045; 76700-TC; 76770; 80048; 80053; 80061; 80074; 81000-TC; 82103; 82803-TC; 82962; 83516; 83605; 83735-TC; 83880; 84100-TC; 84484; 85025; 85610-TC; 85651-TC; 85730-TC; 86038; 86140; 86710; 86738; 86886; 86900; 86901; 86920; 87040-TC; 87070; 87070-TC; 87081; 87205-TC; 87449; 90935; 90937; 93005; 93306; 94002; 94003; 94640; 94760; 96365; 96375; 99285; A6209; C1751; G0378; J0282; J0456; J0610; J1450; J1644; J1815; J1940; J1956; J2001; J2060; J2250; J2270; J2310; J2543; J3010; J3465; J3480; J3490; J7030; J7040; J7050; J7060; J7613; P9021